=== PATIENT | female | born 1965 | race African-American/Black ===

== ENCOUNTER 2017-11-08 08:19 | Outpatient (CLI) | payer OTHER | END 2017-11-08 21:20 | disposition home or self-care (01) | LOC: SMA 08:19 | PROVIDERS: ATTEND Family Medicine | DX: Z12.31 Encounter for screening mammogram for malignant neoplasm of breast (principal) | CPT/HCPCS: G0202 ==

== ENCOUNTER 2017-11-11 08:24 | Outpatient (CLI) | payer OTHER | END 2017-11-11 20:23 | disposition home or self-care (01) | LOC: SUS 08:24 | PROVIDERS: ATTEND Family Medicine | DX: N64.4 Mastodynia (principal) | CPT/HCPCS: 76642 ==

== ENCOUNTER → 2018-12-22 | Outpatient (CLI) | payer OTHER | END | disposition home or self-care (01) | LOC: SMA 11-24 15:48 | PROVIDERS: ATTEND Family Medicine | DX: N64.4 Mastodynia (principal) | CPT/HCPCS: 77066 ==

== ENCOUNTER → 2021-02-12 | Outpatient (CLI) | payer OTHER | END | disposition home or self-care (01) | LOC: SMA 15:33 | DX: Z12.31 Encounter for screening mammogram for malignant neoplasm of breast (principal) | CPT/HCPCS: 77067 ==

== ENCOUNTER 2022-10-07 11:52 | Outpatient (CLI) | payer OTHER | END 2022-10-07 20:37 | disposition home or self-care (01) | LOC: SMA 11:52 | PROVIDERS: ATTEND Family Medicine | DX: Z12.31 Encounter for screening mammogram for malignant neoplasm of breast (principal) | CPT/HCPCS: 77067 ==

== ENCOUNTER 2023-11-25 10:15 | Outpatient (CLI) | payer OTHER | END 2023-11-25 18:24 | disposition home or self-care (01) | LOC: SMA 10:15 | PROVIDERS: ATTEND Family Medicine | DX: Z12.31 Encounter for screening mammogram for malignant neoplasm of breast (principal) | CPT/HCPCS: 77067 ==